=== PATIENT | female | born 1995 | race Caucasian/White ===

== ENCOUNTER 2021-10-24 13:52 | Inpatient (IN) | payer MEDICAID ==
[~2021-10-24] VITALS: Ht 167.6 cm; Wt 63.0 kg
[2021-10-24] MEDS ORDERED: SERT-162 PO (17:38)
[2021-10-25] MEDS ORDERED: INFLUENZA VIRUS VACCINE QVS 2021-22 (6MO+)/PF 60 MCG/0.5 ML SYRINGE IM. ONE (02:15)
[2021-10-25 04:10] VITALS: BP 108/65
[2021-10-25] MEDS ORDERED: LORazepam 2 MG TABLET PO PRN (05:15)
[2021-10-25] MEDS ORDERED: ZOLPIDEM TARTRATE 10 MG TABLET PO PRN (05:15)
[2021-10-25] MEDS ORDERED: HALOPERIDOL 5 MG TABLET PO PRN (05:15)
[2021-10-25 08:18] VITALS: BP 103/61
[2021-10-25] MEDS ORDERED: IBUPROFEN 400 MG TABLET PO PRN (10:45)
[2021-10-25] MEDS ORDERED: ALBUTEROL SULFATE HFA 90 MCG/PUFF 8 GM INHALER IH PRN (10:45)
[2021-10-25] MEDS ORDERED: CloNIDine HCL 0.1 MG TABLET PO PRN (10:45)
[2021-10-25] MEDS ORDERED: ONDANSETRON HCL 4 MG TABLET PO PRN (10:45)
[2021-10-25] MEDS ORDERED: GuaiFENesin/D-METHORPHAN [SUGAR-FREE] 200-20MG/10 ML SYRUP UDCUP PO PRN (10:45)
[2021-10-25] MEDS ORDERED: PETROLATUM,WHITE 28 GM JELLY TP PRN (10:45)
[2021-10-25] MEDS ORDERED: MAG HYDROX/AL HYDROX/SIMETH ES 30 ML SUSPENSION UDCUP PO PRN (10:45)
[2021-10-25] MEDS ORDERED: NICOTINE 14 MG/24 HOUR PATCH TD PRN (10:45)
[2021-10-25] MEDS ORDERED: LOPERAMIDE HCL 2 MG CAPSULE PO PRN (10:45)
[2021-10-25] MEDS ORDERED: DOCUSATE SODIUM 100 MG CAPSULE PO PRN (10:45)
[2021-10-25] MEDS ORDERED: ACETAMINOPHEN 325 MG TABLET PO PRN (10:45)
[2021-10-25] MEDS: SERTRALINE HCL 100 MG TABLET PO SCH (15:11)
[2021-10-25 16:14] VITALS: BP 100/60
[2021-10-26 06:54] LABS: BASOPHILS % (AUTO) 0.9 % (0.0-2.0); EOSINOPHILS % (AUTO) 2.6 % (1.0-6.0); HEMATOCRIT 35.9 % (36-46); HEMOGLOBIN 12.2 g/dL (12.0-16.0); LYMPHOCYTES # (AUTO) 2.7 K/uL (1.0-4.8); LYMPHOCYTES % (AUTO) 37.6 % (22.0-44.0); MEAN CORPUSCULAR HEMOGLOBIN 27.1 pg (26.0-34.0); MEAN CORPUSCULAR HGB CONC 34.1 G/dL (31.0-37.0); MEAN CORPUSCULAR VOLUME 80 fL (80-100); MONOCYTES # (AUTO) 0.9 K/uL (0.1-1.0); MONOCYTES % (AUTO) 12.1 % (2.0-9.0); NEUTROPHILS # (AUTO) 3.4 K/uL (1.8-7.7); NEUTROPHILS % (AUTO) 46.8 % (40.0-70.0); PLATELET COUNT (AUTO) 289 K/uL (150-450); RED BLOOD CELL COUNT(AUTO) 4.51 MIL/uL (4.00-5.20); RED CELL DISTRIBUTION WIDTH 14.1 % (11.5-14.5)
[2021-10-26 07:31] LABS: ALANINE AMINOTRANSFERASE 20 U/L (12-78); ALBUMIN 3.3 g/dL (3.4-5.0); ALKALINE PHOSPHATASE 82 U/L (46-116); ANION GAP 12 mmol/L (8-16); ASPARTATE AMINOTRANSFERASE 14 U/L (15-37); BILIRUBIN,TOTAL 0.2 mg/dL (0.1-1.0); CALCIUM, TOTAL 8.6 mg/dL (8.8-10.5); CARBON DIOXIDE 26 mmol/L (22-29); CHLORIDE 102 mmol/L (98-107); CHOL/HDL RATIO 4.5 (3.9-5.7); CHOLESTEROL 233 mg/dL (131-200); CREATININE 0.78 mg/dL (0.60-1.30); FREE T4 (FREE THYROXINE) 0.88 ng/dL (0.76-1.46); GLOMERULAR FILTR. RATE CALC > 60 mL/min (>60); GLUCOSE,RANDOM 91 mg/dL (70-110); HDL CHOLESTEROL 52 mg/dL (40-60); LDL CHOL (CALC.) 159 mg/dL (0-130); POTASSIUM 4.1 mmol/L (3.5-5.1); SODIUM SERUM 140 mmol/L (136-145); TOTAL PROTEIN, SERUM 7.2 g/dL (6.4-8.2); TRIGLYCERIDES 109 mg/dL (15-150); UREA NITROGEN, BLOOD 18 mg/dL (7-18)
[2021-10-26 08:10] VITALS: BP 94/74
[2021-10-26] MEDS: SERTRALINE HCL 100 MG TABLET PO SCH (08:36)
[2021-10-26] MEDS: MAGNESIUM HYDROXIDE SUSPENSION 30 ML UDCUP PO PRN (12:59)
[2021-10-26 16:08] VITALS: BP 109/62
[2021-10-27 05:32] VITALS: BP 114/75
[2021-10-27] MEDS: SERTRALINE HCL 100 MG TABLET PO SCH (08:07)
[2021-10-27 08:27] VITALS: BP 102/69
[2021-10-27 16:30] VITALS: BP 113/67
[2021-10-28 01:00] VITALS: BP 110/65
[2021-10-28 08:25] VITALS: BP 99/65
[2021-10-28] MEDS: SERTRALINE HCL 100 MG TABLET PO SCH (08:35)
[2021-10-28] MEDS ORDERED: SERT-162 PO (09:23)
[2021-10-28 16:04] VITALS: BP 106/68
[2021-10-29 00:24] VITALS: BP 110/60
[2021-10-29 07:27] LABS: COVID AG,FIA SOURCE NASOPHARYNGEAL
[2021-10-29 08:14] VITALS: BP 98/56
[2021-10-29] MEDS: SERTRALINE HCL 100 MG TABLET PO SCH (09:26)
[2021-10-29] MEDS: MAGNESIUM HYDROXIDE SUSPENSION 30 ML UDCUP PO PRN (16:20)
[2021-10-29 16:39] VITALS: BP 100/69
[2021-10-30 00:40] VITALS: BP 102/63
[2021-10-30 08:05] VITALS: BP 103/61
[2021-10-30] MEDS: SERTRALINE HCL 100 MG TABLET PO SCH (08:16)
[2021-10-30 16:07] VITALS: BP 101/60
[2021-10-31 05:24] VITALS: BP 106/63
[2021-10-31 08:16] VITALS: BP 97/66
[2021-10-31] MEDS: SERTRALINE HCL 100 MG TABLET PO SCH (08:37)
[2021-10-31 16:20] VITALS: BP 99/63
[2021-11-01 05:21] VITALS: BP 109/59
[2021-11-01 08:14] VITALS: BP 98/84
[2021-11-01] MEDS: SERTRALINE HCL 100 MG TABLET PO SCH (08:17)
[2021-11-01 16:17] VITALS: BP 106/77
[2021-11-02 00:05] VITALS: BP 102/74
[2021-11-02 08:03] VITALS: BP 105/61
[2021-11-02] MEDS: SERTRALINE HCL 100 MG TABLET PO SCH (10:04)
[2021-11-02 16:01] VITALS: BP 105/66
[2021-11-03 05:37] VITALS: BP 105/60
[2021-11-03 08:04] VITALS: BP 115/64
[2021-11-03] MEDS: SERTRALINE HCL 100 MG TABLET PO SCH (08:53)
[2021-11-03 17:08] VITALS: BP 112/62
[2021-11-04 08:02] VITALS: BP 98/66
[2021-11-04] MEDS: SERTRALINE HCL 100 MG TABLET PO SCH (08:19)
[2021-11-04 17:33] VITALS: BP 139/87
[2021-11-05 01:57] VITALS: BP 126/86
[2021-11-05] MEDS: SERTRALINE HCL 100 MG TABLET PO SCH (08:55)
[2021-11-05 10:27] VITALS: BP 109/72
[2021-11-05 15:36] LABS: GLUCOMETER DEV NAME(LOC) POC.BV
[2021-11-05 16:16] VITALS: BP 115/76
[2021-11-06 00:39] VITALS: BP 103/61
[2021-11-06] MEDS: SERTRALINE HCL 100 MG TABLET PO SCH (08:35)
[2021-11-06 08:45] VITALS: BP 126/76
[2021-11-06 16:10] VITALS: BP 108/70
[2021-11-07 00:15] VITALS: BP 104/62
[2021-11-07] MEDS: SERTRALINE HCL 100 MG TABLET PO SCH (08:12)
[2021-11-07 08:51] VITALS: BP 105/73
[2021-11-07 16:12] VITALS: BP 121/75
[2021-11-08 00:26] VITALS: BP 109/63
[2021-11-08] MEDS: SERTRALINE HCL 100 MG TABLET PO SCH (08:00)
[2021-11-08 09:17] VITALS: BP 128/63
[2021-11-08 16:04] VITALS: BP 115/70
[2021-11-09 00:56] VITALS: BP 121/79
[2021-11-09] MEDS: SERTRALINE HCL 100 MG TABLET PO SCH (08:16)
[2021-11-09 08:18] VITALS: BP 107/68
[2021-11-09 16:09] VITALS: BP 110/60
[2021-11-10 01:14] VITALS: BP 108/62
[2021-11-10 08:02] VITALS: BP 101/62
[2021-11-10] MEDS: SERTRALINE HCL 100 MG TABLET PO SCH (08:08)
[2021-11-10 16:11] VITALS: BP 106/60
[2021-11-11 00:50] VITALS: BP 101/62
[2021-11-11 08:00] VITALS: BP 107/73
[2021-11-11] MEDS: SERTRALINE HCL 100 MG TABLET PO SCH (08:49)
[2021-11-11 16:05] VITALS: BP 108/72
[2021-11-12 01:00] VITALS: BP 105/62
[2021-11-12] MEDS: SERTRALINE HCL 100 MG TABLET PO SCH (08:03)
[2021-11-12 08:11] VITALS: BP 101/61
[2021-11-12 09:27] LABS: GLUCOMETER DEV NAME(LOC) POC.BV
[2021-11-12 16:16] VITALS: BP 113/64
[2021-11-13 00:20] VITALS: BP 105/74
[2021-11-13 08:12] VITALS: BP 111/73
[2021-11-13] MEDS: SERTRALINE HCL 100 MG TABLET PO SCH (09:02)
[2021-11-13] MEDS ORDERED: SERT-440 PO (13:01)
== END 2021-11-13 14:45 | disposition home or self-care (01) | DRG 751 ==
LOC: B2S 10-25 01:20
PROVIDERS: ADMIT Psychiatry & Neurology Psychiatry; ATTEND Psychiatry & Neurology Psychiatry
DX: F33.2 Major depressive disorder, recurrent severe without psychotic features (principal); R45.851 Suicidal ideations; F41.9 Anxiety disorder, unspecified; K59.00 Constipation, unspecified; Z20.822 Contact with and (suspected) exposure to COVID-19; R10.13 Epigastric pain; F12.99 Cannabis use, unspecified with unspecified cannabis-induced disorder; Z79.899 Other long term (current) drug therapy; Z88.7 Allergy status to serum and vaccine; Z23 Encounter for immunization
CPT/HCPCS: 80053; 80061; 84439; 85025; 90686